=== PATIENT | male | born 1965 | race Caucasian/White ===

== ENCOUNTER → 2016-06-28 | Outpatient (CLI) | payer BC ==
[~2016-06-28] MED LIST: LISI10TA4 PO; METF500T PO; PROP1TAB29 PO; PROS5TAB PO; TRAZ150T14 PO; ZONI100C2 PO
--- NOTE | 2016-06-29 02:55 | REP ---
Clinical: Spondylosis . Technique: AP, lateral, bilateral oblique, flexion/extension, and coned-down views. Findings: Alignment and lordosis is maintained. The vertebral bodies including transverse process and spinous processes are intact and without acute fracture / compression injury or subluxation. Mild multilevel degenerative disc osteophyte complexes are noted throughout the lumbosacral spine. There is no evidence for spondylolysis or spondylolisthesis. Impression: Mild multilevel degenerative disc osteophyte complexes. Signed by Aaron Coughlin MD 06/29/2016 02:47 A
--- NOTE | 2016-06-29 03:00 | REP ---
Clinical: Spondylosis. Technique: AP, lateral, flexion/extension, swimmer's, open-mouth, bilateral oblique views. Findings: Straightening of normal lordosis is appreciated with stable alignment on flexion and extension views. Mild multilevel degenerative changes include subtle anterior spurring and minimal endplate sclerosis. No acute fracture / compression injury or subluxation. Open mouth view demonstrates normal C1-C2 articulation and odontoid process. Oblique views demonstrate patent neural foramen. Impression: Mild age-related degenerative changes. Signed by Aaron Coughlin MD 06/29/2016 02:52 A
== END ==
LOC: M RAD 15:42
PROVIDERS: ATTEND Neurological Surgery
DX: M47.896 Other spondylosis, lumbar region (principal); M47.892 Other spondylosis, cervical region; M50.30 Other cervical disc degeneration, unspecified cervical region; M51.36 Other intervertebral disc degeneration, lumbar region

== ENCOUNTER → 2016-10-15 | Outpatient (CLI) | payer BC ==
--- NOTE | 2016-11-05 23:41 | ECWPNPC ---
PATIENT NAME: FRACISCO BASHIR : 1965 GENDER: MALE VISIT DATE: 10/15/2016 DISCHARGE DATE: 10/15/16 1444 VISIT LOCKED DATE TIME: PHYSICIAN: ROSENDO NAM RESOURCE: ROSENDO NAM REASON FOR APPOINTMENT 1. BACK HISTORY OF PRESENT ILLNESS NEW PATIENT CONSULT: WHEN DID YOUR PAIN FIRST START? . BRIEFLY DESCRIBE HOW YOUR PAIN STARTED? . HOW DOES YOUR PAIN CHANGE WITH TIME? . DOES YOUR PAIN AWAKEN YOU FROM SLEEP? . HOW MANY HOURS OF SLEEP DO YOU NORMALLY GET? . ANY DIAGNOSTIC TESTING? . FACILITY WHERE TESTS WERE DONE? ____. PAIN TREATMENT TREATMENT YES CANCER HAVE YOU EVER HAD ANY TYPE OF CANCER?NO NO. PAIN SCREENING: PATIENT HAS A COMPLAINT OF ACUTE OR CHRONIC PAIN :YES FALL RISK SCREENING: SCREENING :NO FALLS IN THE PAST YEAR TERAN INVENTORY: QUESTIONNAIRE ASSESSEDYES SCORE VALUE CALCULATED YES SCORE: DENIES SUICIDDAL OR HOMICIDAL IDEATION TODAY'S VISIT: NOTES: PT REFERRED FOR EVAL OF LOW BACK AND NECK PAIN BY DR KIRAN. NECK PAIN RADIATES TO LEFT ARM AND 3, 4, 5. REPORTS 10 MONTHS AGO - 12/23 HAD NEW ONSET PAIN IN LOW BACK WITH RADIATION TO LEFT LEG. NOW PAIN IS BERADIATING DOWN RIGHT LEG AND POSTERIOR THIGH. WENT TO ER IN [place] LAST SUMMER. FOLLOWED UP WITH PCP AND DR KIM, AND WAS SENT TO PT WHICH DID NOT HELP. WAS SEEN BY NCO, THEN SECOND OPINION WITH DR KIRAN. NOT FELT TO BE A SURGICAL CANDIDATE. STATES HAS HAD PREVIOUS STEROID INJECTS BUT FELT THEY DID NOT LAST.PROLONGED WALKING , SITTING, STANDING INCREASES PAIN. SLEEP CAN NE DISRUPTED - REQUING SLEEP MED. REPORTS P/N INBOTH FEET, L>R. NUMBNESS GOES DOWN LEFT LEG. NOTES SOME WEAKNESS IN LEFT LEG AND FOOT. HAS DIFFICULTY WITH STAIRS. BOWELS : HAD SIG FREQ, BACLOFEN INCREASED BY DR BANKS INCREASED. BOWELS ARE VERY LOOSE. BLADDER - URINARY FREQUENCY. NO INCONTENCE. DID HAVE SOME HEMATURIA. NO SADDLE NUMBLESS. . CURRENT MEDICATIONS TAKING PROPRANOLOL HCL 60 MG TABLET 1 TABLET ORALLY ONCE A DAY TAKING BACLOFEN 10 MG TABLET 1 TABLET IN AM, AFTERNOON, 2 TABS AT BEDTIME ORALLY THREE TIMES A DAY TAKING METFORMIN HCL 500 MG TABLET 1 TABLET WITH MEALS ORALLY TWICE A DAY TAKING LISINOPRIL 10 MG TABLET 1 TABLET ORALLY ONCE A DAY TAKING ZONISAMIDE 100 MG CAPSULE 1 CAPSULE ORALLY TWICE A DAY TAKING LUNESTA 3 MG TABLET 1 TABLET IMMEDIATELY BEFORE BEDTIME ORALLY ONCE A DAY TAKING PAMELOR 25 MG CAPSULE 1 CAPSULE IN AM 2 CAPS AT BEDTIME ORALLY TWICE A DAY TAKING DEPAKOTE 500 MG TABLET DELAYED RELEASE ORALLY TWICE A DAY TAKING TRAMADOL HCL 50 MG TABLET 1 TAB ORALLY EVERY 6 HOURS NEEDED/MMD#4 TAKING GABAPENTIN 400 MG CAPSULE 1 CAPSULE ORALLY THREE TIMES A DAY, NOTES: PT UNSURE OF DOSAGE TAKING RIZATRIPTAN BENZOATE 10 MG TABLET 1 TABLET NEEDED ONE TIME ORALLY ONCE A DAY MEDICATION LIST REVIEWED AND RECONCILED WITH THE PATIENT PAST MEDICAL HISTORY MULTIPLE SCLEROSIS MUSCLE WEAKNESS, BLURRED VISION, DIZZINESS AR YEARS AGO HYPERTENSION REFLUX DIABETES BACK PAIN, ARTHRITIS SPINAL STENOSIS MIGRAINES ALLERGIES IODINE: ANAPHYLAXIS: ALLERGY GADOLINIUM BASE DYES: ANAPHYLAXIS: ALLERGY ALL OPIOIDS: ANAPHYLAXIS: ALLERGY FISH AND FISH PRODUCTS: VIOLENTLY ILL: ALLERGY SURGICAL HISTORY FACIAL RECONSTRUCTION SURGERY 1992 RIGHT SHOULDER RECONSTRUCTION 2011 CARDIAC CATH 2009 FAMILY HISTORY FATHER: ALIVE MOTHER: ALIVE, DIAGNOSED WITH HYPERTENSION 1 BROTHER(S) , 1 SISTER(S) . 1DAUGHTER(S) - HEALTHY. BOTH SIBLINGS DRUG ABUSE. SOCIAL HISTORY GENERAL: TOBACCO USE ARE YOU A:FORMER SMOKER HOW LONG HAS IT BEEN SINCE YOU LAST SMOKED?> 10 YEARS ALCOHOL SCREENING POINTS2 INTERPRETATIONNEGATIVE RECREATIONAL DRUG USE DRUG USE?NO CAFFEINE CAFFEINE USE?YES HOW OFTEN AND HOW MUCH? DAILY LEARNING BARRIERS / SPECIAL NEEDS BARRIERS TO LEARNING?NO HEARING IMPAIRED?NO VISION IMPAIRED?YES : WEARS GLASSES COGNITIVELY IMPAIRED?NO READINESS TO LEARN?NO LEARNING PREFERENCES?NO SPECIAL DEVICES?NO PAIN CLINIC PFS, CLERGY, PUBLIC HEALTH REFERRALS PFS REFERRAL NEEDED?NO CLERGY REFERRAL NEEDED?NO PUBLIC HEALTH REFERRAL NEEDED?NO WAS THE PROVIDER NOTIFIED OF ANY PERTINENT INFO?NO PATIENT: ____. ADVANCED DIRECTIVES HEALTH CARE PROXY?YES NAME OF HCP [facility] BASHIR CONTACT # FOR HCP [phone] DO YOU HAVE A COPY WITH YOU? NO HOSPITALIZATION/MAJOR DIAGNOSTIC PROCEDURE DENIES PAST HOSPITALIZATION REVIEW OF SYSTEMS CONSTITUTIONAL: ANY CHANGE IN YOUR MEDICAL CONDITION? NO . CHILLS NO . FEVER NO . INFECTION: DO YOU HAVE NEW INFECTIONS? NO . DO YOU HAVE HISTORY OF MRSA? NO . MUSCULOSKELETAL: ANY NEW PATTERNS OF PAIN OR NUMBNESS? NO . SYTEMIC LUPUS NO . GASTROENTEROLOGY: ANY NEW CHANGE IN BOWEL CONTROL? YES, HAS TO TAKE MEDS FOR BOWELS DUE TO MS . BARRETTS ESOPHAGUS NO . CIRRHOSIS NO . HEPATITIS NO . LIVER FAILURE NO . ACID REFLUX YES . UNEXPLAINED WEIGHT LOSS NO . GENITOURINARY: ANY NEW CHANGE IN BLADDER CONTROL? NO . IS THERE A CHANCE YOU COULD BE ? NO . HEMATOLOGY/LYMPH: DO YOU TAKE ANY BLOOD THINNERS? (FOR EXAMPLE- COUMADIN, PLAVIX, AGGRENOX, PLATEL, PRADAXA, OR XARELTO) NO . WHEN WAS YOUR LAST DOSE? DATE: TIME: . LOW PLATELET COUNT NO . SICKLE CELL DISEASE NO . VON WILLIEBRANDS NO . FACTOR V LEIDEN NO . THALLASEMIA NO . ANEMIA NO . EASY BRUISING NO . NEUROLOGY: MULTIPLE SCLEROSIS HAS SYMPTOMS BYR CSF NEGATIVE FOR BANDS . MYAASTHENIA GRAVIS NO . MIGRAINES CURRENTLY DAILY - ON MEDS . CARDIOLOGY: DO YOU HAVE A PACEMAKER OR DEFIBRILLATOR? NO . ANGINA NO . HEART ATTACK YES - FOLLOWING SIGNIFICANT STRESS AT WORK . HEART SURGERY NO . CONGESTIVE HEART FAILURE/FLUID OVERLOAD NO . CHEST PAIN YES - 2- 3 TIMES PER WEEK.OVER THE LAST 6 MONTHS. . HIGH BLOOD PRESSURE ON MEDICATION(S) . IRREGULAR HEART BEAT NO . RESPIRATORY: HAVE YOU BEEN SICK IN THE PAST WEEK? NO . FEVER NO . FLU LIKE SYMPTOMS? NO . CPAP NO . BYPAP NO . ASTHMA NO . EMPHYSEMA NO . CHRONIC LUNG DISEASES NO . SHORTNESS OF BREATH ON EXERTION NO . DO YOU USE ANY TYPE OF TOBACCO (SMOKE, SMOKELESS, CHEW)? NO . COUGH NO . SNORING NO . INTEGUMENTARY: DO YOU HAVE ANY RASHES OR OPEN SORES? NO . ALLERGIC/IMMUNO: ARE YOU ALLERGIC TO SHELLFISH OR IV DYE? YES, ALL FIN FISH ALLERGIES, NOT SHELLFISH . ANY NEW ALLERGIES? NO . PSYCHIATRIC: DO YOU HAVE THOUGHTS OF HURTING YOURSELF OR SOMEONE ELSE? NO . ARE YOU ABUSED, NEGLECTED, OR IN AN UNSAFE ENVIRONMENT? NO . ENDOCRINOLOGY: ARE YOU DIABETIC? YES . THYROID DISORDER NO . OTHER: DO YOU NEED ANY PRESCRIPTIONS? NO . IF YES, PLEASE LIST: ____ . ANY NEW PROBLEMS WITH YOUR MEDICATIONS? NO . WHEN DID YOU LAST EAT? ____ . WHEN DID YOU LAST DRINK? ____ . WHAT DID YOU LAST DRINK? ____ . NAME OF PERSON DRIVING YOU HOME? ____ . DO YOU HAVE ANY OTHER QUESTIONS OR CONCERNS NO . REVIEWED BY: PROVIDER: ROSENDO NIELSEN . VITAL SIGNS WT 280.8 LBS, HT 69 IN, BMI 41.46 INDEX, BP 134/81 MM HG, HR 88 /MIN, RR 16 /MIN, TEMP 97.8 F, OXYGEN SAT % 96%, NA INITIALS SC 12:16, REVIEWED BY: CM. EXAMINATION GENERAL EXAMINATION: PSYCHALERT , ORIENTED X 3 , APPROPRIATE MOOD AND AFFECT , [facility] CONTACT. HEENT:NORMOCEPHALIC, NO LYMPHADENOPATHY, NO THYROMEGLY. LUNGS:CLEAR TO AUSCULTATION BILATERALLY, NO WHEEZES, RALES OR RHONCHI. HEART:HEART RATE REGULAR, NORMAL S1S2, NO MURMURS, CLICK OR RUBS. MUSCULOSKELETAL: RISES SLOWLY TO STANDING POSITION. CAN FLEX TO 90 DEGREES, EXT 15 DEGREES WITH MARKED PAIN, ROTATE WITHOUT DIFF. EXQUISITE TENDERNESS OVER LUMBAR SPINOUS PROCESSES AND LEFT SACRUM, LEFT SACRAL ILIAC JOINT. ABLE TO RISE TO HEELS AND TOES - DOES HAVE SOME DIFFICULTY WITH BALANCE.. EXTREMITIES:TRACE EDEMA TG LOWER EXTREMITES. NEUROLOGIC EXAM:DTR'S TRACE ON RIGHT, TRACE TO ABSENT ON LEFT LLE. DECREASED SENSATION MED/LATERAL ;LEFT THIGH. DIAGNOSTIC TESTS REVIEWEDMRI OF LUMBAR SINE COMPLETED 06/22/16 REVIEWED. ASSESSMENTS LUMBAR FACET ARTHROPATHY - M12.88 (PRIMARY) LUMBAR RADICULOPATHY, CHRONIC - M54.16 TREATMENT LUMBAR FACET ARTHROPATHY INJECTION FACET JOINT/NERVE BELIA/ROSENDO MCCARTHY 10/15/2016 2:03:04 PM > DIAGNOSTIC BILATERAL LUMBAR L4-5, L5 S! NOTES: MEDS PER DR BANKS, AND PRIMARY CARE. ,FACET JOINT INJECTION MATERIAL WAS PRINTED. CLINICAL NOTES: OPTIONS FOR INTERVENTIONAL TREATMENTS REVIEWED WITH PATIENT INCLUDING DIAGNOSTIC AND THERAPEUTIC FACET BLOCK. PT WAS INTERESTED IN THE LONGEST POSSIBLE RELIEF. RISKS AND BENEFITS WERE REVIEWED. PROCEDURE CODES FA211 ESTABILISHED PATIENT [facility] FAC[facility] CHARGE DISPOSITION & COMMUNICATION FOLLOW UP AFTER INJECTION (REASON: CHECK AUTH FOR DIAGNOSTIC BILATERAL LUMBAR FEACET BLOCK) ELECTRONICALLY SIGNED BY ADRIANNE BROWN ON 11/05/2016 AT 05:33 PM EDT DISCLAIMER : THIS IS A VISIT SUMMARY EXTRACTED FROM THE [employer] CHART. IT IS NOT A COPY OF THE [employer] PROGRESS NOTE. MTDD
== END | disposition home or self-care (01) ==
LOC: M PAIN 11:20
PROVIDERS: ATTEND Nurse Practitioner Family
DX: G89.29 Other chronic pain (principal); M12.88 Other specific arthropathies, not elsewhere classified, other specified site; M54.16 Radiculopathy, lumbar region; I10 Essential (primary) hypertension; E11.9 Type 2 diabetes mellitus without complications; K21.9 Gastro-esophageal reflux disease without esophagitis; M48.00 Spinal stenosis, site unspecified; G35 Multiple sclerosis; I25.2 Old myocardial infarction; Z79.899 Other long term (current) drug therapy; Z79.84 Long term (current) use of oral hypoglycemic drugs; Z88.5 Allergy status to narcotic agent; Z88.8 Allergy status to other drugs, medicaments and biological substances; Z91.013 Allergy to seafood; Z87.891 Personal history of nicotine dependence

== ENCOUNTER → 2016-11-15 | Outpatient (CLI) | payer BC ==
[~2016-11-15] MED LIST changes: +LIDOCAINE 1% SDV INJ 30 ML VIAL As Ordered ONE
--- NOTE | 2016-11-15 12:13 | REP ---
PARTIAL LUMBAR SPINE SERIES: Four views. HISTORY: Facet block for pain. 32 seconds of fluoroscopy time is reported. FINDINGS: A sequence of four fluoroscopically obtained last image hold spot radiographs document various needle positions associated with lumbar spine facet injection procedures. Signed by Jeferson Gutierrez MD 11/15/2016 03:07 P
--- NOTE | 2016-11-25 23:58 | ECWPNPC ---
PATIENT NAME: FRACISCO BASHIR : 1965 GENDER: MALE VISIT DATE: 11/15/2016 DISCHARGE DATE: 11/15/16 1157 VISIT LOCKED DATE TIME: PHYSICIAN: TITO PERALTA RESOURCE: TITO PERALTA REASON FOR APPOINTMENT 1. DIAG LUMBAR FACET BLOCK HISTORY OF PRESENT ILLNESS HISTORY OF PRESENT ILLNESS: PAIN THE PATIENT DESCRIBES THE PAIN... FALL RISK SCREENING: SCREENING :NO FALLS IN THE PAST YEAR CURRENT MEDICATIONS TAKING PROPRANOLOL HCL 60 MG TABLET 1 TABLET ORALLY ONCE A DAY, NOTES: 11-15-1600 TAKING BACLOFEN 10 MG TABLET 1 TABLET IN AM, AFTERNOON, 2 TABS AT BEDTIME ORALLY THREE TIMES A DAY, NOTES: 11-15-16 0800 TAKING METFORMIN HCL 500 MG TABLET 1 TABLET WITH MEALS ORALLY TWICE A DAY, NOTES: 11-14-16 5PM TAKING LISINOPRIL 10 MG TABLET 1 TABLET ORALLY ONCE A DAY, NOTES: 11-15-16 0800 TAKING ZONISAMIDE 100 MG CAPSULE 1 CAPSULE ORALLY TWICE A DAY, NOTES: 11-15-16799 TAKING LUNESTA 3 MG TABLET 1 TABLET IMMEDIATELY BEFORE BEDTIME ORALLY ONCE A DAY, NOTES: 11-14-16 MIDNIGHT TAKING PAMELOR 25 MG CAPSULE 1 CAPSULE IN AM 2 CAPS AT BEDTIME ORALLY TWICE A DAY, NOTES: 11-15-16 08 TAKING DEPAKOTE 500 MG TABLET DELAYED RELEASE ORALLY TWICE A DAY, NOTES: 11-15-16799 TAKING TRAMADOL HCL 50 MG TABLET 1 TAB ORALLY EVERY 6 HOURS NEEDED/MMD#4, NOTES: 11-15-16 MIDNIGHT TAKING GABAPENTIN 400 MG CAPSULE 1 CAPSULE ORALLY THREE TIMES A DAY, NOTES: 11-15-16799 TAKING RIZATRIPTAN BENZOATE 10 MG TABLET 1 TABLET NEEDED ONE TIME ORALLY ONCE A DAY, NOTES: 11-13-16799 MEDICATION LIST REVIEWED AND RECONCILED WITH THE PATIENT PAST MEDICAL HISTORY MULTIPLE SCLEROSIS MUSCLE WEAKNESS, BLURRED VISION, DIZZINESS ND YEARS AGO HYPERTENSION REFLUX DIABETES BACK PAIN, ARTHRITIS SPINAL STENOSIS MIGRAINES ALLERGIES IODINE: ANAPHYLAXIS: ALLERGY GADOLINIUM BASE DYES: ANAPHYLAXIS: ALLERGY ALL OPIOIDS: ANAPHYLAXIS: ALLERGY FISH AND FISH PRODUCTS: VIOLENTLY ILL: ALLERGY REVIEW OF SYSTEMS CONSTITUTIONAL: ANY CHANGE IN YOUR MEDICAL CONDITION? NO . CHILLS NO . FEVER NO . INFECTION: DO YOU HAVE NEW INFECTIONS? NO . DO YOU HAVE HISTORY OF MRSA? NO . MUSCULOSKELETAL: ANY NEW PATTERNS OF PAIN OR NUMBNESS? NO . GASTROENTEROLOGY: ANY NEW CHANGE IN BOWEL CONTROL? NO . GENITOURINARY: ANY NEW CHANGE IN BLADDER CONTROL? NO . IS THERE A CHANCE YOU COULD BE ? NO . HEMATOLOGY/LYMPH: DO YOU TAKE ANY BLOOD THINNERS? (FOR EXAMPLE- COUMADIN, PLAVIX, AGGRENOX, PLATEL, PRADAXA, OR XARELTO) NO . WHEN WAS YOUR LAST DOSE? DATE: TIME: . NEUROLOGY: HAVE YOU FALLEN IN THE PAST 6 MONTHS? NO . ANY NEW EXTREMITY NUMBNESS OR WEAKNESS? NO . CARDIOLOGY: DO YOU HAVE A PACEMAKER OR DEFIBRILLATOR? NO . RESPIRATORY: HAVE YOU BEEN SICK IN THE PAST WEEK? NO . FEVER NO . FLU LIKE SYMPTOMS? NO . COUGH NO . INTEGUMENTARY: DO YOU HAVE ANY RASHES OR OPEN SORES? NO . ALLERGIC/IMMUNO: ARE YOU ALLERGIC TO SHELLFISH OR IV DYE? YES IODINE AND FISH ANY DYE . ANY NEW ALLERGIES? NO . PSYCHIATRIC: DO YOU HAVE THOUGHTS OF HURTING YOURSELF OR SOMEONE ELSE? NO . ARE YOU ABUSED, NEGLECTED, OR IN AN UNSAFE ENVIRONMENT? NO . ENDOCRINOLOGY: ARE YOU DIABETIC? YES . OTHER: DO YOU NEED ANY PRESCRIPTIONS? NO . IF YES, PLEASE LIST: ____ . ANY NEW PROBLEMS WITH YOUR MEDICATIONS? NO . WHEN DID YOU LAST EAT? 11-15-16 MIDNIGHT . WHEN DID YOU LAST DRINK? 11-15-16 1000 . WHAT DID YOU LAST DRINK? TWIST . NAME OF PERSON DRIVING YOU HOME? [facility] . DO YOU HAVE ANY OTHER QUESTIONS OR CONCERNS NO . REVIEWED BY: PROVIDER: . VITAL SIGNS WT 274.0 LBS, HT 69 IN, BMI 40.46 INDEX, BP 121/79 MM HG, HR 90 /MIN, RR 16 /MIN, TEMP 97.2 F, OXYGEN SAT % 96%, NA INITIALS TL 1014. ASSESSMENTS SPONDYLOSIS WITHOUT MYELOPATHY OR RADICULOPATHY, LUMBAR REGION - M47.816 (PRIMARY) SPONDYLOSIS WITHOUT MYELOPATHY OR RADICULOPATHY, LUMBOSACRAL REGION - M47.817 PROCEDURES PN LUMBAR FACET BLOCK DIAGNOSTIC PRE PROCEDURE DIAGNOSIS LUMBAR SPONDYLOSIS, LUMBOSACRAL SPONDYLOSIS POST PROCEDURE DIAGNOSIS LUMBAR SPONDYLOSIS, LUMBOSACRAL SPONDYLOSIS PROCEDURE BILATERAL L4-L5 AND L5-S1 FACET BLOCK DIAGNOSTIC NUMBER #[address] TITO PERALTA NUT GRINDER NONE ANESTHESIA LOCAL PRE PROCEDURE NOTE THE PATIENT WITH HISTORY OF CHRONIC LOW BACK PAIN. I EVALUATED THE PATIENT AND REVIEWED THE CHART. I WENT OVER THE RISKS, ALTERNATIVES, AND BENEFITS ASSOCIATED WITH THIS PROCEDURE. THE PATIENT WOULD LIKE TO PROCEED AND GAVE CONSENT TO PERFORM THE PROCEDURE. AGREED WITH THE PATIENT WE ARE DOING THIS PROCEDURE TO DETERMINE IF THE PATIENT IS A CANDIDATE FOR A RADIOFREQUENCY ABLATION OF THE FACETS JOINTS. THE PATIENT DENIES UNEXPLAINABLE WEIGHT LOSS, FEVER, CHILLS, OR NEW CHANGES IN URINARY OR BOWEL CONTROL DESCRIPTION OF PROCEDURE THE PATIENT WAS BROUGHT TO THE PROCEDURE ROOM AND PLACED IN THE PRONE POSITION. THE LUMBOSACRAL AREA WAS CLEANED WITH CHLORAPREP SOLUTION AND DRAPED ASEPTICALLY. THE PROCEDURE WAS DONE UNDER STERILE CONDITIONS. I CHECKED LATERALITY AND THE LEVEL WHERE THE PROCEDURE WAS GOING TO BE PERFORMED WITH THE PATIENT AND THE SUPPORTING STAFF AT THE MOMENT OF THE TIME OUT IN THE PROCEDURE ROOM. UNDER FLUOROSCOPIC GUIDANCE, TARGETS WERE SELECTED AT THE INTERSECTION OF THE RIGHT AND LEFT TRANSVERSE PROCESS OF L4, L5 AND ALA OF S1 WITH ITS RESPECTIVE SUPERIOR ARTICULAR PROCESS. LIDOCAINE WAS USED TO NUMB THE SKIN AND THE SUBCUTANEOUS TISSUE BELOW IT. SPINAL NEEDLE, 22-GAUGE WAS ADVANCED UNDER FLUOROSCOPIC GUIDANCE AND FOLLOWING PATIENT FEEDBACK UNTIL THE TARGETS WERE REACHED. POSITION OF THE NEEDLES WAS VERIFIED WITH AP AND LATERAL VIEWS. AFTER PROPER POSITION OF THE NEEDLES WAS ACHIEVED, ISOVUE-M DYE 30% 0.1 ML WAS INJECTED AT EACH SITE SHOWING ADEQUATE SPREAD OF THE DYE. THEN A SOLUTION OF 0.4 ML OF BUPIVACAINE 0.25% WAS INJECTED AT EACH SITE. THERE WAS NO EVIDENCE OF BLOOD, PARESTHESIA OR CEREBROSPINAL FLUID DURING THE PROCEDURE. THE PATIENT WAS SENT TO THE RECOVERY ROOM. THE PATIENT WAS MOVING THE EXTREMITIES AND DOING WELL. THERE WAS NO COMPLICATION DURING THE PROCEDURE. FLUOROSCOPY TIME WAS 32 SECONDS POST PROCEDURE NOTE THE PATIENT WILL DOCUMENT HIS PAIN LEVEL AND RESPONSE TO THIS PROCEDURE EVERY 30 MINUTES. THE PATIENT WILL BE SEEN IN A FOLLOW UP IN THE NEXT FEW WEEKS. FURTHER DETERMINATION FOR HIS CASE WILL BE DONE AT THE NEXT VISIT. INSTRUCTIONS WERE GIVEN, QUESTIONS WERE ANSWERED, AND THE PATIENT EXPRESSED UNDERSTANDING AND AGREED WITH THE PLAN. I, CHRISTOPHER SALINAS, DOCUMENTED THE ABOVE INFORMATION ACTING A SCRIBE FOR DR. PERALTA. I HAVE REVIEWED THE ABOVE DOCUMENT, WRITTEN BY CHRISTOPHER SALINAS SCRIBTaya AND I VERIFY THAT IT IS [facility] FACET BLOCK (PAIN)[id number] PROCEDURE CODES 99179 INJ PARAVERT F JNT L/S 1 LEV 67645 INJ PARAVERT F JNT L/S 2 LEV 6045F RADXPS IN END [id number] PXD DISPOSITION & COMMUNICATION FOLLOW UP 3 WEEKS ELECTRONICALLY SIGNED BY TITO PERALTA MD ON 11/25/2016 AT 03:48 PM EDT DISCLAIMER : THIS IS A VISIT SUMMARY EXTRACTED FROM THE [employer] CHART. IT IS NOT A COPY OF THE [employer] PROGRESS NOTE. MTDD
== END | disposition home or self-care (01) ==
LOC: M PAIN 10:20
PROVIDERS: ATTEND Anesthesiology
DX: G89.29 Other chronic pain (principal); M47.816 Spondylosis without myelopathy or radiculopathy, lumbar region; M47.817 Spondylosis without myelopathy or radiculopathy, lumbosacral region; G35 Multiple sclerosis; I10 Essential (primary) hypertension; K21.9 Gastro-esophageal reflux disease without esophagitis; E11.9 Type 2 diabetes mellitus without complications; M19.90 Unspecified osteoarthritis, unspecified site; M48.00 Spinal stenosis, site unspecified; G43.909 Migraine, unspecified, not intractable, without status migrainosus; I25.2 Old myocardial infarction; Z79.899 Other long term (current) drug therapy; Z79.84 Long term (current) use of oral hypoglycemic drugs; Z88.5 Allergy status to narcotic agent; Z88.8 Allergy status to other drugs, medicaments and biological substances; Z91.013 Allergy to seafood

== ENCOUNTER → 2016-12-03 | Outpatient (CLI) | payer BC ==
[~2016-12-03] MED LIST changes: -LIDOCAINE 1% SDV INJ 30 ML VIAL As Ordered ONE; -METF500T PO; +METF500T13 PO; -TRAZ150T14 PO; +TRAZ1TAB14 PO
--- NOTE | 2016-12-20 01:02 | ECWPNPC ---
PATIENT NAME: FRACISCO BASHIR : 1965 GENDER: MALE VISIT DATE: 12/03/2016 DISCHARGE DATE: 12/03/16 1028 VISIT LOCKED DATE TIME: PHYSICIAN: ROSENDO NAM RESOURCE: ROSENDO NAM REASON FOR APPOINTMENT 1. POST PROCEDURE HISTORY OF PRESENT ILLNESS HISTORY OF PRESENT ILLNESS: PAIN THE PATIENT DESCRIBES THE PAIN... FALL RISK SCREENING: SCREENING :NO FALLS IN THE PAST YEAR TODAY'S VISIT: NOTES: IS S/P DIAGNOSTIC LUMBAR FACET BLOCK #1 (BILATERAL) COMPLETED ON 11/15/16. REPORTS NEAR 100% PAIN RELIEF FOR 48 HOURS. WAS ABLE TO BE VERY ACTIVE DURING THIS PERIOD OF TIME. REPORTS PAIN LEVEL PRIOR WAS 10/10, POST 4-5/10 FOR 2 HOURS, THE 2/10 UNTIL DAY 2. REPORTS HAD NO PAIN OVER THE HIPS. NOTES DID STILL HAVE CENTER SPINE AREA DISCOMFORT.. CURRENT MEDICATIONS TAKING PROPRANOLOL HCL 60 MG TABLET 1 TABLET ORALLY ONCE A DAY, NOTES: 11-15-16 0800 TAKING BACLOFEN 10 MG TABLET 1 TABLET IN AM, AFTERNOON, 2 TABS AT BEDTIME ORALLY THREE TIMES A DAY, NOTES: 11-15-16 08 TAKING METFORMIN HCL 500 MG TABLET 1 TABLET WITH MEALS ORALLY TWICE A DAY, NOTES: 11-14-16 5PM TAKING LISINOPRIL 10 MG TABLET 1 TABLET ORALLY ONCE A DAY, NOTES: 11-15-16 0800 TAKING ZONISAMIDE 100 MG CAPSULE 1 CAPSULE ORALLY TWICE A DAY, NOTES: 11-15-16 08 TAKING LUNESTA 3 MG TABLET 1 TABLET IMMEDIATELY BEFORE BEDTIME ORALLY ONCE A DAY, NOTES: 11-14-16 MIDNIGHT TAKING PAMELOR 25 MG CAPSULE 1 CAPSULE IN AM 2 CAPS AT BEDTIME ORALLY TWICE A DAY, NOTES: 11-15-16 08 TAKING DEPAKOTE 500 MG TABLET DELAYED RELEASE ORALLY TWICE A DAY, NOTES: 11-15-16 08 TAKING TRAMADOL HCL 50 MG TABLET 1 TAB ORALLY EVERY 6 HOURS NEEDED/MMD#4, NOTES: 11-15-16 MIDNIGHT TAKING GABAPENTIN 400 MG CAPSULE 1 CAPSULE ORALLY THREE TIMES A DAY, NOTES: 11-15-16 0800 TAKING RIZATRIPTAN BENZOATE 10 MG TABLET 1 TABLET NEEDED ONE TIME ORALLY ONCE A DAY, NOTES: 11-13-16 0800 TAKING IBUPROFEN 800 MG TABLET 1 TABLET WITH FOOD OR MILK ORALLY THREE TIMES A DAY MEDICATION LIST REVIEWED AND RECONCILED WITH THE PATIENT PAST MEDICAL HISTORY MULTIPLE SCLEROSIS MUSCLE WEAKNESS, BLURRED VISION, DIZZINESS MT YEARS AGO HYPERTENSION REFLUX DIABETES BACK PAIN, ARTHRITIS SPINAL STENOSIS MIGRAINES ALLERGIES IODINE: ANAPHYLAXIS: ALLERGY GADOLINIUM BASE DYES: ANAPHYLAXIS: ALLERGY ALL OPIOIDS: ANAPHYLAXIS: ALLERGY FISH AND FISH PRODUCTS: VIOLENTLY ILL: ALLERGY REVIEW OF SYSTEMS REVIEWED BY: PROVIDER: ROSENDO NIELSEN . CONSTITUTIONAL: ANY CHANGE IN YOUR MEDICAL CONDITION? NO . CHILLS NO . FEVER NO . INFECTION: DO YOU HAVE NEW INFECTIONS? NO . DO YOU HAVE HISTORY OF MRSA? NO . MUSCULOSKELETAL: ANY NEW PATTERNS OF PAIN OR NUMBNESS? YES PT HAD BILATERAL DIAGNOSTIC BLOCK 11/15/16, REPORTS GOOD IMPROVEMENT LASTING TWO DAYS, THEN PAIN RETURNED, PT REPORTS HE WAS VERY ACTIVE THAT DAY. . GASTROENTEROLOGY: ANY NEW CHANGE IN BOWEL CONTROL? NO . GENITOURINARY: ANY NEW CHANGE IN BLADDER CONTROL? NO . IS THERE A CHANCE YOU COULD BE ? NO . HEMATOLOGY/LYMPH: DO YOU TAKE ANY BLOOD THINNERS? (FOR EXAMPLE- COUMADIN, PLAVIX, AGGRENOX, PLATEL, PRADAXA, OR XARELTO) NO . WHEN WAS YOUR LAST DOSE? DATE: TIME: . NEUROLOGY: HAVE YOU FALLEN IN THE PAST 6 MONTHS? NO . ANY NEW EXTREMITY NUMBNESS OR WEAKNESS? NO . CARDIOLOGY: DO YOU HAVE A PACEMAKER OR DEFIBRILLATOR? NO . RESPIRATORY: HAVE YOU BEEN SICK IN THE PAST WEEK? NO . FEVER NO . FLU LIKE SYMPTOMS? NO . COUGH NO . INTEGUMENTARY: DO YOU HAVE ANY RASHES OR OPEN SORES? NO . ALLERGIC/IMMUNO: ARE YOU ALLERGIC TO SHELLFISH OR IV DYE? YES . ANY NEW ALLERGIES? NO . PSYCHIATRIC: DO YOU HAVE THOUGHTS OF HURTING YOURSELF OR SOMEONE ELSE? NO . ARE YOU ABUSED, NEGLECTED, OR IN AN UNSAFE ENVIRONMENT? NO . ENDOCRINOLOGY: ARE YOU DIABETIC? YES . OTHER: DO YOU NEED ANY PRESCRIPTIONS? NO . IF YES, PLEASE LIST: ____ . ANY NEW PROBLEMS WITH YOUR MEDICATIONS? NO . WHEN DID YOU LAST EAT? ____ . WHEN DID YOU LAST DRINK? ____ . WHAT DID YOU LAST DRINK? ____ . NAME OF PERSON DRIVING YOU HOME? ____ . DO YOU HAVE ANY OTHER QUESTIONS OR CONCERNS NO . VITAL SIGNS WT 269.4 LBS, HT 69 IN, BMI 39.78 INDEX, BP 135/97 MM HG, HR 95 /MIN, RR 18 /MIN, TEMP 98.2 F, OXYGEN SAT % 97%, SAFE IN ENV? (Y/N) YES, NA INITIALS 09:50, REVIEWED BY: NERY. EXAMINATION GENERAL EXAMINATION: PSYCHALERT , ORIENTED X 3 , APPROPRIATE MOOD AND AFFECT . LUNGS:CLEAR TO AUSCULTATION BILATERALLY. HEART:HEART RATE REGULAR. MUSCULOSKELETAL:POINT TENDERNESSS OVER LUMBOSACRAL AXIS LEFT> RIGHT. SLOW TO RISE TO STANDING POSITION. INCREASED PAIN WITH BACK EXTENSION. . ASSESSMENTS SPONDYLOSIS WITHOUT MYELOPATHY OR RADICULOPATHY, LUMBAR REGION - M47.816 (PRIMARY) SPONDYLOSIS WITHOUT MYELOPATHY OR RADICULOPATHY, LUMBOSACRAL REGION - M47.817 TREATMENT SPONDYLOSIS WITHOUT MYELOPATHY OR RADICULOPATHY, LUMBAR REGION INJECTION FACET JOINT/NERVE LUMBAR/SACRALROSENDO NAM 12/03/2016 10:11:37 AM > LEFT DIAGNOSTIC #2 L4-5, L5-S1 NOTES: HOLD DIABETES MEDS AM OF PROCEDURE. CONTINE EXERCISE AND WALKING TOLERATED. PROCEDURE CODES FA211 ESTABILISHED PATIENT [facility] CHARGE DISPOSITION & COMMUNICATION FOLLOW UP AFTER INJECTION (REASON: CHECK AUTH FOR DIAGNOSTIC # 2 LUMBAR FACET BLOCK AT L4-5, L5-S1) ELECTRONICALLY SIGNED BY ADRIANNE BROWN ON 12/19/2016 AT 08:33 AM EDT DISCLAIMER : THIS IS A VISIT SUMMARY EXTRACTED FROM THE [employer] CHART. IT IS NOT A COPY OF THE [employer] PROGRESS NOTE. SILVIO
== END ==
LOC: M PAIN 09:40
PROVIDERS: ATTEND Nurse Practitioner Family
DX: M47.816 Spondylosis without myelopathy or radiculopathy, lumbar region (principal); M47.817 Spondylosis without myelopathy or radiculopathy, lumbosacral region; Z79.84 Long term (current) use of oral hypoglycemic drugs; Z79.891 Long term (current) use of opiate analgesic; Z79.899 Other long term (current) drug therapy; Z88.3 Allergy status to other anti-infective agents; Z91.041 Radiographic dye allergy status; Z88.8 Allergy status to other drugs, medicaments and biological substances; Z91.013 Allergy to seafood; G35 Multiple sclerosis; I10 Essential (primary) hypertension; K21.9 Gastro-esophageal reflux disease without esophagitis; E11.9 Type 2 diabetes mellitus without complications; G43.909 Migraine, unspecified, not intractable, without status migrainosus; I25.2 Old myocardial infarction

== ENCOUNTER → 2016-12-17 | Outpatient (CLI) | payer BC ==
[~2016-12-17] MED LIST changes: +BUPIVACAINE HCL 0.25% 30 ML VIAL As Ordered ONE; +LIDOCAINE 1% SDV INJ 30 ML VIAL As Ordered ONE
--- NOTE | 2016-12-17 12:56 | REP ---
Partial lumbar spine series: Single view . History: Injection procedure for pain. 40 seconds of fluoroscopy time is reported. Findings: A sequence of three fluoroscopically obtained last image hold procedural spot radiographs of the lumbar spine document needle position and contrast injection associated with injection procedure. Signed by Jeferson Gutierrez MD 12/17/2016 12:48 P
--- NOTE | 2016-12-23 23:35 | ECWPNPC ---
PATIENT NAME: FRACISCO BASHIR : 1965 GENDER: MALE VISIT DATE: 12/17/2016 DISCHARGE DATE: 12/17/16 1244 VISIT LOCKED DATE TIME: PHYSICIAN: TITO PERALTA RESOURCE: TITO PERALTA REASON FOR APPOINTMENT 1. #2 LUMBAR FACET CURRENT MEDICATIONS TAKING PROPRANOLOL HCL 60 MG TABLET 1 TABLET ORALLY ONCE A DAY, NOTES: 12-17-16799 TAKING BACLOFEN 10 MG TABLET 1 TABLET IN AM, AFTERNOON, 2 TABS AT BEDTIME ORALLY THREE TIMES A DAY, NOTES: 12-16-162099 TAKING METFORMIN HCL 500 MG TABLET 1 TABLET WITH MEALS ORALLY TWICE A DAY, NOTES: 12-16-162099 TAKING LISINOPRIL 10 MG TABLET 1 TABLET ORALLY ONCE A DAY, NOTES: 12-17-16799 TAKING ZONISAMIDE 100 MG CAPSULE 1 CAPSULE ORALLY TWICE A DAY, NOTES: 12-17-16799 TAKING LUNESTA 3 MG TABLET 1 TABLET IMMEDIATELY BEFORE BEDTIME ORALLY ONCE A DAY, NOTES: 12-16-162099 TAKING PAMELOR 25 MG CAPSULE 1 CAPSULE IN AM 2 CAPS AT BEDTIME ORALLY TWICE A DAY, NOTES: 12-17-16799 TAKING DEPAKOTE 500 MG TABLET DELAYED RELEASE ORALLY TWICE A DAY, NOTES: 03-26 TAKING TRAMADOL HCL 50 MG TABLET 1 TAB ORALLY EVERY 6 HOURS NEEDED/MMD#4, NOTES: 12-16-162099 TAKING GABAPENTIN 400 MG CAPSULE 1 CAPSULE ORALLY THREE TIMES A DAY, NOTES: 12-17-16799 TAKING RIZATRIPTAN BENZOATE 10 MG TABLET 1 TABLET NEEDED ONE TIME ORALLY ONCE A DAY, NOTES: 12-13-16799 TAKING IBUPROFEN 800 MG TABLET 1 TABLET WITH FOOD OR MILK ORALLY THREE TIMES A DAY, NOTES: 12-16-162099 MEDICATION LIST REVIEWED AND RECONCILED WITH THE PATIENT PAST MEDICAL HISTORY MULTIPLE SCLEROSIS MUSCLE WEAKNESS, BLURRED VISION, DIZZINESS OH YEARS AGO HYPERTENSION REFLUX DIABETES BACK PAIN, ARTHRITIS SPINAL STENOSIS MIGRAINES ALLERGIES IODINE: ANAPHYLAXIS: ALLERGY GADOLINIUM BASE DYES: ANAPHYLAXIS: ALLERGY ALL OPIOIDS: ANAPHYLAXIS: ALLERGY FISH AND FISH PRODUCTS: VIOLENTLY ILL: ALLERGY VITAL SIGNS WT 263.5 LBS, HT 69 IN, BMI 38.91 INDEX, BP 122/71 MM HG, HR 89 /MIN, RR 16 /MIN, TEMP 97.5 F, OXYGEN SAT % 94%, NA INITIALS TL 1102, REVIEWED BY: KG. ASSESSMENTS SPONDYLOSIS WITHOUT MYELOPATHY OR RADICULOPATHY, LUMBAR REGION - M47.816 (PRIMARY) SPONDYLOSIS WITHOUT MYELOPATHY OR RADICULOPATHY, LUMBOSACRAL REGION - M47.817 PROCEDURES PN LUMBAR FACET BLOCK DIAGNOSTIC PRE PROCEDURE DIAGNOSIS LUMBAR SPONDYLOSIS, LUMBOSACRAL SPONDYLOSIS POST PROCEDURE DIAGNOSIS LUMBAR SPONDYLOSIS, LUMBOSACRAL SPONDYLOSIS PROCEDURE LEFT L4-L5 AND LEFT L5-S1 FACET BLOCK DIAGNOSTIC NUMBER [address] TITO PERALTA INORGANIC CHEMICAL TECHNICIAN NONE ANESTHESIA LOCAL PRE PROCEDURE NOTE THE PATIENT WITH HISTORY OF CHRONIC LOW BACK PAIN. I EVALUATED THE PATIENT AND REVIEWED THE CHART. I WENT OVER THE RISKS, ALTERNATIVES, AND BENEFITS ASSOCIATED WITH THIS PROCEDURE. THE PATIENT WOULD LIKE TO PROCEED AND GAVE CONSENT TO PERFORM THE PROCEDURE. AGREED WITH THE PATIENT WE ARE DOING THIS PROCEDURE TO DETERMINE IF THE PATIENT IS A CANDIDATE FOR A RADIOFREQUENCY ABLATION OF THE FACETS JOINTS. THE PATIENT DENIES UNEXPLAINABLE WEIGHT LOSS, FEVER, CHILLS, OR NEW CHANGES IN URINARY OR BOWEL CONTROL DESCRIPTION OF PROCEDURE THE PATIENT WAS BROUGHT TO THE PROCEDURE ROOM AND PLACED IN THE PRONE POSITION. THE LUMBOSACRAL AREA WAS CLEANED WITH CHLORAPREP SOLUTION AND DRAPED ASEPTICALLY. THE PROCEDURE WAS DONE UNDER STERILE CONDITIONS. I CHECKED LATERALITY AND THE LEVEL WHERE THE PROCEDURE WAS GOING TO BE PERFORMED WITH THE PATIENT AND THE SUPPORTING STAFF AT THE MOMENT OF THE TIME OUT IN THE PROCEDURE ROOM. UNDER FLUOROSCOPIC GUIDANCE, TARGETS WERE SELECTED AT THE INTERSECTION OF THE LEFT TRANSVERSE PROCESS OF L4, L5 AND ALA OF S1 WITH ITS RESPECTIVE SUPERIOR ARTICULAR PROCESS. LIDOCAINE WAS USED TO NUMB THE SKIN AND THE SUBCUTANEOUS TISSUE BELOW IT. SPINAL NEEDLE, 22-GAUGE WAS ADVANCED UNDER FLUOROSCOPIC GUIDANCE AND FOLLOWING PATIENT FEEDBACK UNTIL THE TARGETS WERE REACHED. POSITION OF THE NEEDLES WAS VERIFIED WITH AP AND LATERAL VIEWS. AFTER PROPER POSITION OF THE NEEDLES WAS ACHIEVED, ISOVUE-M DYE 30% 0.1 ML WAS INJECTED AT EACH SITE SHOWING ADEQUATE SPREAD OF THE DYE. THEN A SOLUTION OF 0.4 ML OF BUPIVACAINE 0.25% WAS INJECTED AT EACH SITE. THERE WAS NO EVIDENCE OF BLOOD, PARESTHESIA OR CEREBROSPINAL FLUID DURING THE PROCEDURE. THE PATIENT WAS SENT TO THE RECOVERY ROOM. THE PATIENT WAS MOVING THE EXTREMITIES AND DOING WELL. THERE WAS NO COMPLICATION DURING THE PROCEDURE. FLUOROSCOPY TIME WAS 40 SECONDS POST PROCEDURE NOTE THE PATIENT WILL DOCUMENT HIS PAIN LEVEL AND RESPONSE TO THIS PROCEDURE EVERY 30 MINUTES. THE PATIENT WILL BE SEEN IN A FOLLOW UP IN THE NEXT FEW WEEKS. FURTHER DETERMINATION FOR HIS CASE WILL BE DONE AT THE NEXT VISIT. INSTRUCTIONS WERE GIVEN, QUESTIONS WERE ANSWERED, AND THE PATIENT EXPRESSED UNDERSTANDING AND AGREED WITH THE PLAN. I, SAURAV CHILDRESS, DOCUMENTED THE ABOVE INFORMATION ACTING A SCRIBE FOR DR. PERALTA. I HAVE REVIEWED THE ABOVE DOCUMENT, WRITTEN BY SAURAV ARRIAGAIBTaya AND I VERIFY THAT IT IS ACCURATE DIAGNOSTIC IMAGING [facility] FACET BLOCK (PAIN)[id number] PROCEDURE CODES 40959 INJ PARAVERT F JNT L/S 1 LEV 50716 INJ PARAVERT F JNT L/S 2 LEV 6045F RADXPS IN END [id number] PXD DISPOSITION & COMMUNICATION FOLLOW UP 3 WEEKS ELECTRONICALLY SIGNED BY TITO PERALTA MD ON 12/23/2016 AT 09:48 PM EDT DISCLAIMER : THIS IS A VISIT SUMMARY EXTRACTED FROM THE [employer] CHART. IT IS NOT A COPY OF THE [employer] PROGRESS NOTE. MTDD
== END ==
LOC: M PAIN 11:00
PROVIDERS: ATTEND Anesthesiology
DX: G89.29 Other chronic pain (principal); M54.5 Low back pain; M47.816 Spondylosis without myelopathy or radiculopathy, lumbar region; M47.817 Spondylosis without myelopathy or radiculopathy, lumbosacral region; Z79.891 Long term (current) use of opiate analgesic; Z79.899 Other long term (current) drug therapy; Z79.84 Long term (current) use of oral hypoglycemic drugs; Z88.3 Allergy status to other anti-infective agents; Z91.041 Radiographic dye allergy status; Z88.5 Allergy status to narcotic agent; Z91.013 Allergy to seafood

== ENCOUNTER → 2016-12-27 | Outpatient (CLI) | payer BC ==
[~2016-12-27] MED LIST changes: -BUPIVACAINE HCL 0.25% 30 ML VIAL As Ordered ONE; -LIDOCAINE 1% SDV INJ 30 ML VIAL As Ordered ONE
--- NOTE | 2017-01-25 01:27 | ECWPNPC ---
PATIENT NAME: FRACISCO BASHIR : 1965 GENDER: MALE VISIT DATE: 12/27/2016 DISCHARGE DATE: 12/27/16 1020 VISIT LOCKED DATE TIME: PHYSICIAN: ROSENDO NAM RESOURCE: ROSENDO NAM REASON FOR APPOINTMENT 1. POST FACET HISTORY OF PRESENT ILLNESS HISTORY OF PRESENT ILLNESS: PAIN THE PATIENT DESCRIBES THE PAIN... FALL RISK SCREENING: SCREENING :NO FALLS IN THE PAST YEAR TODAY'S VISIT: NOTES: S/P DIAGNOSTIC LEFT LUMBAR FACET BLOCK #2 AT L4-5 AND L5-S1 ON 12/17/16. WHILE BLOCK WAS IN PLACE, LEFT SIDE WAS 0/10, BUT DID HAVE CONTINUED PAIN TO THE RIGHT. PAIN ON LEFT SIDE RETURENED AFTER 5 HOURS. WSA ABLE TO WALK AND MOVE WITH MUCH MORE COMFORT DURING THE BLOCK. PAIN WHICH RADIATES TO LEFT BUTTUCK AND LEG WAS ALSO RESOLVED DURING THE PERIOD THE BLOCK WAS IN EFFECT. PT IS HOPEFUL WE WILL ALSO BE ABLE TO ADDRESS THE RIGHT SIDE BACK PAIN WITH INTERVENTION. CURRENT MEDICATIONS TAKING PROPRANOLOL HCL 60 MG TABLET 1 TABLET ORALLY ONCE A DAY TAKING BACLOFEN 10 MG TABLET 1 TABLET IN AM, AFTERNOON, 2 TABS AT BEDTIME ORALLY THREE TIMES A DAY TAKING METFORMIN HCL 500 MG TABLET 1 TABLET WITH MEALS ORALLY TWICE A DAY TAKING LISINOPRIL 10 MG TABLET 1 TABLET ORALLY ONCE A DAY TAKING ZONISAMIDE 100 MG CAPSULE 1 CAPSULE ORALLY TWICE A DAY TAKING LUNESTA 3 MG TABLET 1 TABLET IMMEDIATELY BEFORE BEDTIME ORALLY ONCE A DAY TAKING PAMELOR 25 MG CAPSULE 1 CAPSULE IN AM 2 CAPS AT BEDTIME ORALLY TWICE A DAY TAKING DEPAKOTE 500 MG TABLET DELAYED RELEASE ORALLY TWICE A DAY TAKING TRAMADOL HCL 50 MG TABLET 1 TAB ORALLY EVERY 6 HOURS NEEDED/MMD#4 TAKING GABAPENTIN 400 MG CAPSULE 1 CAPSULE ORALLY THREE TIMES A DAY TAKING RIZATRIPTAN BENZOATE 10 MG TABLET 1 TABLET NEEDED ONE TIME ORALLY ONCE A DAY TAKING IBUPROFEN 800 MG TABLET 1 TABLET WITH FOOD OR MILK ORALLY THREE TIMES A DAY MEDICATION LIST REVIEWED AND RECONCILED WITH THE PATIENT PAST MEDICAL HISTORY MULTIPLE SCLEROSIS MUSCLE WEAKNESS, BLURRED VISION, DIZZINESS [place] YEARS AGO HYPERTENSION REFLUX DIABETES BACK PAIN, ARTHRITIS SPINAL STENOSIS MIGRAINES ALLERGIES IODINE: ANAPHYLAXIS: ALLERGY GADOLINIUM BASE DYES: ANAPHYLAXIS: ALLERGY ALL OPIOIDS: ANAPHYLAXIS: ALLERGY FISH AND FISH PRODUCTS: VIOLENTLY ILL: ALLERGY SOCIAL HISTORY GENERAL: TOBACCO USE ARE YOU A:FORMER SMOKER HOW LONG HAS IT BEEN SINCE YOU LAST SMOKED?> 10 YEARS ALCOHOL SCREENING DID YOU HAVE A DRINK CONTAINING ALCOHOL IN THE PAST YEAR?YES HOW OFTEN DID YOU HAVE A DRINK CONTAINING ALCOHOL IN THE PAST YEAR?MONTHLY OR LESS (1 POINT) HOW MANY DRINKS DID YOU HAVE ON A TYPICAL DAY WHEN YOU WERE DRINKING IN THE PAST YEAR?1 OR 2 (0 POINTS) HOW OFTEN DID YOU HAVE SIX OR MORE DRINKS ON ONE OCCASION IN THE PAST YEAR?LESS THAN MONTHLY (1 POINT) POINTS2 INTERPRETATIONNEGATIVE RECREATIONAL DRUG USE DRUG USE?NO CAFFEINE CAFFEINE USE?YES HOW OFTEN AND HOW MUCH? DAILY LEARNING BARRIERS / SPECIAL NEEDS BARRIERS TO LEARNING?NO HEARING IMPAIRED?NO VISION IMPAIRED?YES : WEARS GLASSES COGNITIVELY IMPAIRED?NO READINESS TO LEARN?NO LEARNING PREFERENCES?NO SPECIAL DEVICES?NO PAIN CLINIC PFS, CLERGY, PUBLIC HEALTH REFERRALS PFS REFERRAL NEEDED?NO CLERGY REFERRAL NEEDED?NO PUBLIC HEALTH REFERRAL NEEDED?NO WAS THE PROVIDER NOTIFIED OF ANY PERTINENT INFO?NO HAS THE PATIENT BEEN EDUCATED REGARDING HIS/HER PLAN OF CARE?YES HAS THE PATIENT BEEN EDUCATED REGARDING PAIN, THE RISK FOR PAIN, THE IMPORTANCE OF EFFECTIVE PAIN MANAGEMENT, AND THE PAIN ASSESSMENT PROCESS?YES PATIENT: ____. ADVANCE DIRECTIVES HEALTH CARE PROXY?YES NAME OF HCP SAL[facility] BASHIR CONTACT # FOR HCP [phone] DO YOU HAVE A COPY WITH YOU? NO REVIEW OF SYSTEMS REVIEWED BY: PROVIDER: ROSENDO NIELSEN . CONSTITUTIONAL: ANY CHANGE IN YOUR MEDICAL CONDITION? NO . CHILLS NO . FEVER NO . INFECTION: DO YOU HAVE NEW INFECTIONS? NO . DO YOU HAVE HISTORY OF MRSA? NO . MUSCULOSKELETAL: ANY NEW PATTERNS OF PAIN OR NUMBNESS? NO . GASTROENTEROLOGY: ANY NEW CHANGE IN BOWEL CONTROL? NO . GENITOURINARY: ANY NEW CHANGE IN BLADDER CONTROL? NO . IS THERE A CHANCE YOU COULD BE ? NO . HEMATOLOGY/LYMPH: DO YOU TAKE ANY BLOOD THINNERS? (FOR EXAMPLE- COUMADIN, PLAVIX, AGGRENOX, PLATEL, PRADAXA, OR XARELTO) NO . WHEN WAS YOUR LAST DOSE? DATE: TIME: . NEUROLOGY: HAVE YOU FALLEN IN THE PAST 6 MONTHS? NO . ANY NEW EXTREMITY NUMBNESS OR WEAKNESS? NO . PARESTHESIAS RECENT BALANCE ISSURE RELATED TO MS . CARDIOLOGY: DO YOU HAVE A PACEMAKER OR DEFIBRILLATOR? NO . RESPIRATORY: HAVE YOU BEEN SICK IN THE PAST WEEK? NO . FEVER NO . FLU LIKE SYMPTOMS? NO . COUGH NO . INTEGUMENTARY: DO YOU HAVE ANY RASHES OR OPEN SORES? NO . ALLERGIC/IMMUNO: ARE YOU ALLERGIC TO SHELLFISH OR IV DYE? YES . ANY NEW ALLERGIES? NO . PSYCHIATRIC: DO YOU HAVE THOUGHTS OF HURTING YOURSELF OR SOMEONE ELSE? NO . ARE YOU ABUSED, NEGLECTED, OR IN AN UNSAFE ENVIRONMENT? NO . ENDOCRINOLOGY: ARE YOU DIABETIC? YES . OTHER: DO YOU NEED ANY PRESCRIPTIONS? YES . IF YES, PLEASE LIST: ____ . ANY NEW PROBLEMS WITH YOUR MEDICATIONS? NO . WHEN DID YOU LAST EAT? ____ . WHEN DID YOU LAST DRINK? ____ . WHAT DID YOU LAST DRINK? ____ . NAME OF PERSON DRIVING YOU HOME? ____ . DO YOU HAVE ANY OTHER QUESTIONS OR CONCERNS NO . VITAL SIGNS WT 265.0 LBS, HT 69 IN, BMI 39.13 INDEX, BP 136/80 MM HG, HR 104 /MIN, RR 16 /MIN, TEMP 96.9 F, OXYGEN SAT % 98%, NA INITIALS TL 0925, REVIEWED BY: JENNI. EXAMINATION GENERAL EXAMINATION: PSYCHALERT , ORIENTED X 3 , APPROPRIATE MOOD AND AFFECT . LUNGS:CLEAR TO AUSCULTATION BILATERALLY. HEART:HEART RATE REGULAR. MUSCULOSKELETAL:POINT TENDERNESSS OVER LUMBOSACRAL AXIS LEFT> RIGHT. SLOW TO RISE TO STANDING POSITION. INCREASED PAIN WITH BACK EXTENSION. . ASSESSMENTS SPONDYLOSIS WITHOUT MYELOPATHY OR RADICULOPATHY, LUMBAR REGION - M47.816 (PRIMARY) SPONDYLOSIS WITHOUT MYELOPATHY OR RADICULOPATHY, LUMBOSACRAL REGION - M47.817 TREATMENT SPONDYLOSIS WITHOUT MYELOPATHY OR RADICULOPATHY, LUMBAR REGION NOTES: RADIOFREQUENCY DENERVATION TO LEFT L4-5 AND L5-S1,UNDERSTANDING RADIOFREQUENCY DENERVATION MATERIAL WAS PRINTED. PREVENTIVE MEDICINE PAIN CLINIC TEACHING: PROCEDURE TEACHING PRE-PROCEDURE TEACHING DONE. QUESTIONS ANSWERED AND VERBALIZES UNDERSTANDING. TEACHING MATERIAL GIVEN.. PROCEDURE CODES FA211 ESTABILISHED PATIENT [facility] FACILITY CHARGE DISPOSITION & COMMUNICATION FOLLOW UP AFTER INJECTION (REASON: REQUEST AUTH FORRADIOFREQUENCY DENERVATION TO LEFT L4-5 AND L5-S1) ELECTRONICALLY SIGNED BY ADRIANNE BROWN ON 01/24/2017 AT 08:31 AM EDT DISCLAIMER : THIS IS A VISIT SUMMARY EXTRACTED FROM THE [employer] CHART. IT IS NOT A COPY OF THE [employer] PROGRESS NOTE. MTDD
== END ==
LOC: M PAIN 09:00
PROVIDERS: ATTEND Nurse Practitioner Family
DX: M47.816 Spondylosis without myelopathy or radiculopathy, lumbar region (principal); M47.817 Spondylosis without myelopathy or radiculopathy, lumbosacral region; Z79.84 Long term (current) use of oral hypoglycemic drugs; Z79.891 Long term (current) use of opiate analgesic; Z79.899 Other long term (current) drug therapy; Z87.891 Personal history of nicotine dependence; Z88.5 Allergy status to narcotic agent; Z88.8 Allergy status to other drugs, medicaments and biological substances; Z91.09 Other allergy status, other than to drugs and biological substances; Z91.013 Allergy to seafood

== ENCOUNTER → 2017-01-08 | Outpatient (CLI) | payer BC ==
--- NOTE | 2017-01-17 07:15 | SLEEP ---
DATE OF STUDY: 01/08/2017 REFERRING PHYSICIAN: Saul Hess MD REASON FOR POLYSOMNOGRAPHY: Excessive daytime sleepiness. INTERPRETATION: A diagnostic polysomnography was performed for evaluation of excessive daytime sleepiness. A total of 7 hours and 42 minutes of data was reviewed with total sleep time 379 minutes with reduced sleep efficiency. EKG revealed periodic speeding and slowing of heart rate surrounding respiratory events. EEG remained normal throughout. The mean oxygen saturation was 94% during sleep, with minimum oxygen saturation 85% during some of the respiratory events. Moderate to severe snoring was seen. Respiratory disturbance index was 9.3 per hour with obstructive apneas and hypopneas. There were no significant respiratory effort related arousals or periodic limb movements of sleep. CONCLUSION: Obstructive sleep apnea syndrome. RECOMMENDATIONS: Overnight polysomnography for titration of positive airway pressure is recommended. Exercise caution while operating motor vehicle and heavy machinery. Avoid alcohol and sedatives. Clinical correlation is recommended.
== END ==
LOC: M SLEEP 19:30
PROVIDERS: ATTEND Psychiatry & Neurology Neurology
DX: G47.00 Insomnia, unspecified (principal)

== ENCOUNTER → 2017-01-24 | Outpatient (CLI) | payer BC ==
[~2017-01-24] MED LIST changes: +BUPIVACAINE HCL 0.25% 30 ML VIAL As Ordered ONE; +LIDOCAINE 1% SDV INJ 30 ML VIAL As Ordered ONE; +TRIAMCINOLONE ACETONIDE SUSP 40 MG/ML VIAL (J3301) As Ordered ONE
--- NOTE | 2017-01-25 08:22 | REP ---
Partial lumbar spine series: Four views . History: Injection procedure for pain. 55 seconds of fluoroscopy time is reported. Findings: A sequence of four fluoroscopically obtained last image hold procedural spot radiographs of the lumbar spine document needle position and contrast injection associated with injection procedure. Signed by Jeferson Gutierrez MD 01/25/2017 08:13 A
--- NOTE | 2017-01-27 23:36 | ECWPNPC ---
PATIENT NAME: FRACISCO BASHIR : 1965 GENDER: MALE VISIT DATE: 01/24/2017 DISCHARGE DATE: 01/24/17 0000 VISIT LOCKED DATE TIME: PHYSICIAN: TITO PERALTA RESOURCE: TITO PERALTA REASON FOR APPOINTMENT 1. RADIOFREQUENCY HISTORY OF PRESENT ILLNESS HISTORY OF PRESENT ILLNESS: PAIN THE PATIENT DESCRIBES THE PAIN... FALL RISK SCREENING: SCREENING :NO FALLS IN THE PAST YEAR CURRENT MEDICATIONS TAKING PROPRANOLOL HCL 60 MG TABLET 1 TABLET ORALLY ONCE A DAY, NOTES: 01-24-17799 TAKING BACLOFEN 10 MG TABLET 1 TABLET IN AM, AFTERNOON, 2 TABS AT BEDTIME ORALLY THREE TIMES A DAY, NOTES: 01-24-17799 TAKING METFORMIN HCL 500 MG TABLET 1 TABLET WITH MEALS ORALLY TWICE A DAY, NOTES: 01-24-17799 TAKING LISINOPRIL 10 MG TABLET 1 TABLET ORALLY ONCE A DAY, NOTES: 01-24-17799 TAKING ZONISAMIDE 100 MG CAPSULE 1 CAPSULE ORALLY TWICE A DAY, NOTES: 01-24-17799 TAKING LUNESTA 3 MG TABLET 1 TABLET IMMEDIATELY BEFORE BEDTIME ORALLY ONCE A DAY, NOTES: 01-23-172199 TAKING PAMELOR 25 MG CAPSULE 1 CAPSULE IN AM 2 CAPS AT BEDTIME ORALLY TWICE A DAY, NOTES: 01-24-17799 TAKING DEPAKOTE 500 MG TABLET DELAYED RELEASE ORALLY TWICE A DAY, NOTES: 01-24-17799 TAKING TRAMADOL HCL 50 MG TABLET 1 TAB ORALLY EVERY 6 HOURS NEEDED/MMD#4, NOTES: 01-23-172199 TAKING GABAPENTIN 400 MG CAPSULE 1 CAPSULE ORALLY THREE TIMES A DAY, NOTES: 01-24-17799 TAKING RIZATRIPTAN BENZOATE 10 MG TABLET 1 TABLET NEEDED ONE TIME ORALLY ONCE A DAY, NOTES: NONE FOR A WEEK TAKING IBUPROFEN 800 MG TABLET 1 TABLET WITH FOOD OR MILK ORALLY THREE TIMES A DAY, NOTES: 01-23-172199 MEDICATION LIST REVIEWED AND RECONCILED WITH THE PATIENT PAST MEDICAL HISTORY MULTIPLE SCLEROSIS MUSCLE WEAKNESS, BLURRED VISION, DIZZINESS [place] YEARS AGO HYPERTENSION REFLUX DIABETES BACK PAIN, ARTHRITIS SPINAL STENOSIS MIGRAINES ALLERGIES IODINE: ANAPHYLAXIS: ALLERGY GADOLINIUM BASE DYES: ANAPHYLAXIS: ALLERGY ALL OPIOIDS: ANAPHYLAXIS: ALLERGY FISH AND FISH PRODUCTS: VIOLENTLY ILL: ALLERGY REVIEW OF SYSTEMS REVIEWED BY: PROVIDER: . CONSTITUTIONAL: ANY CHANGE IN YOUR MEDICAL CONDITION? NO . CHILLS NO . FEVER NO . INFECTION: DO YOU HAVE NEW INFECTIONS? NO . DO YOU HAVE HISTORY OF MRSA? NO . MUSCULOSKELETAL: ANY NEW PATTERNS OF PAIN OR NUMBNESS? YES, WHOLE LEFTY SIDE, LEG. NUMB AND PRICKLY WORSE WITH WALKING. LEFT LEG WEAK. . GASTROENTEROLOGY: ANY NEW CHANGE IN BOWEL CONTROL? NO . GENITOURINARY: ANY NEW CHANGE IN BLADDER CONTROL? NO . IS THERE A CHANCE YOU COULD BE ? NO . HEMATOLOGY/LYMPH: DO YOU TAKE ANY BLOOD THINNERS? (FOR EXAMPLE- COUMADIN, PLAVIX, AGGRENOX, PLATEL, PRADAXA, OR XARELTO) NO . WHEN WAS YOUR LAST DOSE? DATE: TIME: . NEUROLOGY: HAVE YOU FALLEN IN THE PAST 6 MONTHS? YES . ANY NEW EXTREMITY NUMBNESS OR WEAKNESS? NO . CARDIOLOGY: DO YOU HAVE A PACEMAKER OR DEFIBRILLATOR? NO . RESPIRATORY: HAVE YOU BEEN SICK IN THE PAST WEEK? NO . FEVER NO . FLU LIKE SYMPTOMS? NO . COUGH NO . INTEGUMENTARY: DO YOU HAVE ANY RASHES OR OPEN SORES? NO . ALLERGIC/IMMUNO: ARE YOU ALLERGIC TO SHELLFISH OR IV DYE? YES, FIN FISH . ANY NEW ALLERGIES? NO . PSYCHIATRIC: DO YOU HAVE THOUGHTS OF HURTING YOURSELF OR SOMEONE ELSE? NO . ARE YOU ABUSED, NEGLECTED, OR IN AN UNSAFE ENVIRONMENT? NO . ENDOCRINOLOGY: ARE YOU DIABETIC? YES . OTHER: DO YOU NEED ANY PRESCRIPTIONS? NO . IF YES, PLEASE LIST: ____ . ANY NEW PROBLEMS WITH YOUR MEDICATIONS? NO . WHEN DID YOU LAST EAT? 01-23-17 6PM . WHEN DID YOU LAST DRINK? 01-24-17 12 NOON . WHAT DID YOU LAST DRINK? WATER . NAME OF PERSON DRIVING YOU HOME? PRO MARTINEZLEONELELIA . DO YOU HAVE ANY OTHER QUESTIONS OR CONCERNS NO . VITAL SIGNS WT 252 LBS, HT 69 IN, BMI 37.21 INDEX, BP 124/84 MM HG, HR 90 /MIN, RR 16 /MIN, TEMP 97.8 F, OXYGEN SAT % 97%, NA INITIALS SC 15:04, REVIEWED BY: CM. ASSESSMENTS SPONDYLOSIS WITHOUT MYELOPATHY OR RADICULOPATHY, LUMBAR REGION - M47.816 (PRIMARY) SPONDYLOSIS WITHOUT MYELOPATHY OR RADICULOPATHY, LUMBOSACRAL REGION - M47.817 PROCEDURES PN RADIOFREQUENCY PRE PROCEDURE DIAGNOSES 1. LUMBAR SPONDYLOSIS. 2. LUMBOSACRAL SPONDYLOSIS POST PROCEDURE DIAGNOSES 1. LUMBAR SPONDYLOSIS. 2. LUMBOSACRAL SPONDYLOSIS PROCEDURE LEFT L4-L5 AND LEFT L5-S1 LUMBAR FACET RADIOFREQUENCY SURGEON DR. TITO PERALTA SLP NONE ANESTHESIA LOCAL PRE PROCEDURE REPORT THE PATIENT HAS HISTORY OF CHRONIC LOW BACK PAIN. I EVALUATE THE PATIENT AND REVIEWED THE CHART. I WENT OVER THE RISKS, ALTERNATIVES, AND BENEFITS ASSOCIATED WITH THIS PROCEDURE. THE PATIENT WOULD LIKE TO PROCEED AND GIVE CONSENT TO PERFORMED THE PROCEDURE. THE PATIENT DENIES UNEXPLAINABLE WEIGHT LOSS, FEVER, CHILLS, OR NEW CHANGES IN URINARY OR BOWEL CONTROL DESCRIPTION OF PROCEDURE THE PATIENT WAS BROUGHT TO THE PROCEDURE ROOM AND PLACED IN THE PRONE POSITION. THE LUMBOSACRAL AREA WAS CLEANED WITH CHLORAPREP SOLUTION AND DRAPED ASEPTICALLY. THE PROCEDURE WAS DONE UNDER STERILE CONDITIONS. I CHECKED LATERALITY AND THE LEVEL WHERE THE PROCEDURE WAS GOING TO BE PERFORMED WITH THE PATIENT AND THE SUPPORTING STAFF AT THE MOMENT OF THE TIME OUT IN THE PROCEDURE ROOM. UNDER FLUOROSCOPIC GUIDANCE, TARGETS WERE SELECTED AT THE INTERSECTION OF THE LEFT TRANSVERSE PROCESS OF L4, L5 AND ALA OF S1 WITH ITS RESPECTIVE SUPERIOR ARTICULAR PROCESS. LIDOCAINE WAS USED TO NUMB THE SKIN AND THE SUBCUTANEOUS TISSUE BELOW IT. RADIOFREQUENCY NEEDLES 22-GAUGE 15 CM LONG WITH 10 MM ACTIVE CURVE TIP WERE ADVANCED UNDER FLUOROSCOPIC GUIDANCE AND FOLLOWING PATIENT FEEDBACK UNTIL THE TARGET AREA WAS REACHED. POSITION OF THE NEEDLES WAS VERIFIED WITH AP AND LATERAL VIEWS. AFTER PROPER POSITION OF THE NEEDLE WAS ACHIEVED, WE WORKED WITH THE LEFT SELECTED MEDIAN BRANCHES OF L3, L4 AND THE DORSAL RAMI OF L5. WE MEASURED THE CORRESPONDING IMPEDANCES, SENSORY STIMULATION AND MOTOR RESPONSES INDICATED IN THE RADIOFREQUENCY WORK SHEET. POSITION OF THE NEEDLES WAS VERIFIED AGAIN WITH AP AND LATERAL VIEWS. LIDOCAINE 1%, 2 ML, WAS INJECTED AT EACH LEVEL. RADIOFREQUENCY WAS DONE AT EACH LEVEL AT 80 DEGREES FOR 90 SECONDS. AFTER RADIOFREQUENCY WAS DONE, THE PATIENT RECEIVED BUPIVACAINE 0.125% 1 CC WITH KENALOG 5 MG AT EACH SITE. THERE WAS NO EVIDENCE OF BLOOD, PARESTHESIA OR CEREBROSPINAL FLUID DURING THE PROCEDURE. THE PATIENT WAS SENT TO THE RECOVERY ROOM. THE PATIENT WAS MOVING THE EXTREMITIES AND DOING WELL. THERE WAS NO COMPLICATION DURING THE PROCEDURE. FLUOROSCOPY TIME WAS 55 SECONDS POST PROCEDURE NOTE THE PATIENT WILL BE SEEN IN A FOLLOW UP IN THE NEXT FEW WEEKS. INSTRUCTIONS WERE GIVEN, QUESTIONS WERE ANSWERED, AND THE PATIENT EXPRESSED UNDERSTANDING AND AGREES WITH THE PLAN. SAURAV Kebede, DOCUMENTED THE ABOVE INFORMATION ACTING A SCRIBE FOR DR. PERALTA. I HAVE REVIEWED THE ABOVE DOCUMENT, WRITTEN BY SAURAV CHILDRESS SCRIBE AND I VERIFY THAT IT IS ACCURATE DIAGNOSTIC IMAGING [facility] FACET BLOCK (PAIN)[id number] PROCEDURE CODES 52788 DESTROY LUMB/SAC FACET JNT 21654 DESTROY L/S FACET JNT ADDL 6045F RADXPS IN END [id number] [id number] DISPOSITION & COMMUNICATION FOLLOW UP 3 WEEKS ELECTRONICALLY SIGNED BY TITO PERALTA MD ON 01/27/2017 AT 07:17 PM EDT DISCLAIMER : THIS IS A VISIT SUMMARY EXTRACTED FROM THE [employer] CHART. IT IS NOT A COPY OF THE [employer] PROGRESS NOTE. MTDSantos
== END | disposition home or self-care (01) ==
LOC: M PAIN 14:00
PROVIDERS: ATTEND Anesthesiology
DX: G89.29 Other chronic pain (principal); M47.816 Spondylosis without myelopathy or radiculopathy, lumbar region; M47.817 Spondylosis without myelopathy or radiculopathy, lumbosacral region; G35 Multiple sclerosis; I10 Essential (primary) hypertension; K21.9 Gastro-esophageal reflux disease without esophagitis; E11.9 Type 2 diabetes mellitus without complications; M48.00 Spinal stenosis, site unspecified; G43.909 Migraine, unspecified, not intractable, without status migrainosus; Z86.73 Personal history of transient ischemic attack (TIA), and cerebral infarction without residual deficits; Z79.899 Other long term (current) drug therapy; Z79.84 Long term (current) use of oral hypoglycemic drugs; Z88.5 Allergy status to narcotic agent; Z88.8 Allergy status to other drugs, medicaments and biological substances; Z91.013 Allergy to seafood
CPT/HCPCS: 64635; 64636; J3301